=== PATIENT | female | born 1955 | race Caucasian/White ===

== ENCOUNTER 2017-09-17 07:25 | Day surgery (SDC) | payer OTHER ==
[2017-09-17] MEDS ORDERED: LIDOCAINE 100 MG SYRINGE (09:04)
[2017-09-17] MEDS ORDERED: PROPOFOL 20 ML (09:04)
== END 2017-09-17 14:24 | disposition home or self-care (01) ==
LOC: GIL 07:25
DX: Z12.11 Encounter for screening for malignant neoplasm of colon (principal); D12.5 Benign neoplasm of sigmoid colon; K57.90 Diverticulosis of intestine, part unspecified, without perforation or abscess without bleeding; K64.8 Other hemorrhoids; E03.9 Hypothyroidism, unspecified; I10 Essential (primary) hypertension
CPT/HCPCS: 45380; 88305